=== PATIENT | male | born 1950 | race African-American/Black ===

== ENCOUNTER 2016-09-16 23:00 | Inpatient (IN) | payer MEDICARE, MEDICAID ==
[~2016-09-16] VITALS: Ht 172.7 cm; Wt 56.4 kg
[~2016-09-16 23:00] MED LIST: IBUPROFEN600 MG ORAL; PROZAC10 MG ORAL; TENORMIN50 MG ORAL
[2016-09-17] VITALS (8 sets, daily range): BP systolic 140–170; BP diastolic 76–101
[2016-09-17] MEDS ORDERED: METHADONE HCL10 MG PO (01:44)
[2016-09-17] MEDS ORDERED: Morphine Sulfate 4mg/ml Inj IM PRN (02:15)
[2016-09-17] MEDS ORDERED: Morphine Sulfate 2mg/ml Inj IM PRN (02:15)
[2016-09-17] MEDS ORDERED: Morphine Sulfate 2mg/ml Inj IVP PRN ×2 (06:15→17:00)
[2016-09-17] MEDS ORDERED: Morphine Sulfate 4mg/ml Inj IVP PRN ×2 (06:15→15:00)
[2016-09-17 08:32] LABS: BASOPHILS % (AUTO) 1.1 % (0.0-2.0); EOSINOPHILS % (AUTO) 0.6 % (0.0-3.0); MEAN CORPUSCULAR HEMOGLOBIN 27.1 PG (27.0-31.0); MEAN CORPUSCULAR HGB CONC 31.7 G/DL (32.0-36.0); MEAN CORPUSCULAR VOLUME 85 FL (80-99); MEAN PLATELET VOLUME 6.8 FL (6.5-10.1); MONOCYTES % (AUTO) 4.4 % (1.0-10.0); NEUTROPHILS % (AUTO) 76.8 % (45.0-75.0); PLATELET COUNT 273 K/UL (150-450); RED BLOOD COUNT 5.23 M/UL (4.70-6.10); RED CELL DISTRIBUTION WIDTH 12.8 % (11.6-14.8)
--- NOTE | 2016-09-17 08:32 | Diagnostic Imaging Report ---
Indications: Chest pain Technique: Portable AP chest Findings: Comparison: None Lung volumes are asymmetric, right greater than left. Small linear density is present in the left lung base. Right lung clear. Heart size, pulmonary vasculature within normal limits. Thoracic aorta mildly calcified and elongated. Otherwise, no abnormal mediastinal widening. No pleural abnormality detected. Bones and extra pulmonary soft tissues unremarkable. IMPRESSION: Asymmetric lung volumes, acuity indeterminate. This may reflect asymmetric COPD. Minimal subsegmental atelectasis versus scarring left lung base Aortosclerosis and probable chronic hypertensive change
[2016-09-17 08:48] LABS: ALANINE AMINOTRANSFERASE 16 U/L (3-41); ALBUMIN/GLOBULIN RATIO 0.7 (1.0-2.7); ANION GAP 12 (5-15); ASPARTATE AMINO TRANSFERASE 25 U/L (5-40); CALCIUM 9.3 mg/dL (8.6-10.2); CARBON DIOXIDE 27 mEQ/L (20-30); CHLORIDE 97 mEQ/L (98-107); CREATININE 0.7 mg/dL (0.7-1.2); GLOMERULAR FILTRATION RATE > 60 mL/min (>60); HEMOLYSIS 2; MAGNESIUM 1.8 mg/dL (1.7-2.5); PHOSPHORUS 3.4 mg/dL (2.5-4.8); POTASSIUM 3.9 mEQ/L (3.4-4.9); SODIUM 136 mEQ/L (135-145); TOTAL PROTEIN 8.1 g/dL (6.6-8.7)
[2016-09-17] MEDS ORDERED: FLUoxetine 10mg cap ORAL SCH (09:00)
--- NOTE | 2016-09-17 11:34 | Diagnostic Imaging Report ---
APPROVED REPORT CPT Code: 51940 Present Symptoms Lower Extremity Pain: Bilateral BILATERAL: Imaging reveals a patent deep venous system bilaterally. There is no evidence of thrombus within the femoral, popliteal or tibial segments. The greater saphenous veins are also within normal limits. Doppler indicates normal spontaneous flow within these segments.
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
--- NOTE | 2016-09-17 20:49 | History & Physical ---
History and Physical History & Physicial Dictated for Int Med-Dr Malik no. [id number]. ANTONETTE ISSA September 17, 2016 20:49
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
[2016-09-17] MEDS: Morphine Sulfate 4mg/ml Inj IVP PRN (23:58)
[2016-09-18] VITALS: BP 147/95
[2016-09-18 04:00] VITALS: BP 156/99
[2016-09-18 07:06] LABS: BASOPHILS % (AUTO) 0.8 % (0.0-2.0); EOSINOPHILS % (AUTO) 1.7 % (0.0-3.0); LYMPHOCYTES % (AUTO) 19.6 % (20.0-45.0); MEAN CORPUSCULAR HEMOGLOBIN 27.6 PG (27.0-31.0); MEAN CORPUSCULAR HGB CONC 32.5 G/DL (32.0-36.0); MEAN CORPUSCULAR VOLUME 85 FL (80-99); MEAN PLATELET VOLUME 7.6 FL (6.5-10.1); MONOCYTES % (AUTO) 5.8 % (1.0-10.0); PLATELET COUNT 283 K/UL (150-450); RED BLOOD COUNT 4.96 M/UL (4.70-6.10); RED CELL DISTRIBUTION WIDTH 12.7 % (11.6-14.8)
[2016-09-18 07:30] LABS: ALANINE AMINOTRANSFERASE 14 U/L (3-41); ALBUMIN/GLOBULIN RATIO 0.7 (1.0-2.7); ANION GAP 13 (5-15); ASPARTATE AMINO TRANSFERASE 21 U/L (5-40); CALCIUM 9.2 mg/dL (8.6-10.2); CARBON DIOXIDE 27 mEQ/L (20-30); CHLORIDE 93 mEQ/L (98-107); CREATININE 0.8 mg/dL (0.7-1.2); GLOMERULAR FILTRATION RATE > 60 mL/min (>60); HEMOLYSIS 4; SODIUM 133 mEQ/L (135-145); TOTAL PROTEIN 7.7 g/dL (6.6-8.7)
[2016-09-18] MEDS: FLUoxetine 10mg cap ORAL SCH (08:07)
[2016-09-18 08:15] VITALS: BP 138/91
--- NOTE | 2016-09-18 10:53 | Diagnostic Imaging Report ---
Indication: DYSPNEA Technique: One view of the chest Comparison: 09/17/2016 Findings: There is mild elevation left hemidiaphragm. There is minimal left basilar atelectasis. There may be trace pleural fluid on the left The heart size is normal. Aorta is tortuous. Upper mediastinum is unremarkable. Previously reported left 10th rib fracture is barely visible currently. No pneumothorax. No significant interim change Impression: Minimal left basilar atelectasis. Possible trace left-sided pleural effusion or pneumothorax, given evidence of recent rib trauma No acute process otherwise
[2016-09-18 11:50] VITALS: BP 140/94
[2016-09-18] MEDS: Morphine Sulfate 4mg/ml Inj IVP PRN ×2 (14:41→20:46)
[2016-09-18] MEDS ORDERED: NORCO 10-325 T1 EACH ORAL (15:41)
[2016-09-18 15:51] VITALS: BP 122/81
--- NOTE | 2016-09-18 19:18 | Internal Med Progress Note ---
Subjective Physician Name Vamshi Malik Attending Physician Vamshi Malik MD Current Medications Medications (Trade) Dose Ordered Sig/Samm Route PRN Reason Start Time Stop Time Status Last Admin Dose Admin Carvedilol (Coreg) 3.125 mg EVERY 12 HOURS ORAL 09/17/16 21:00 10/17/16 20:59 09/18/16 08:07 Clonidine HCl (Catapres) 0.1 mg Q4H PRN ORAL SBP>160mmHg 09/17/16 17:00 10/17/16 16:59 Dextrose (Dextrose 50%) STAT PRN IV Hypoglycemia 09/17/16 17:00 10/17/16 16:59 Fluoxetine HCl (PROzac) 10 mg DAILY ORAL 09/18/16 09:00 10/18/16 08:59 09/18/16 08:07 Methadone HCl (Methadone HCl) 55 mg DAILY ORAL 09/18/16 09:00 09/25/16 08:59 09/18/16 08:08 Morphine Sulfate (Morphine Sulfate) 2 mg Q4H PRN IVP PAIN 1-6 09/17/16 17:00 09/24/16 16:59 09/18/16 08:45 Morphine Sulfate (Morphine Sulfate) 4 mg Q3H PRN IVP Severe Pain (Pain Scale 7-10) 09/17/16 17:00 09/24/16 16:59 09/18/16 14:41 Allergies: Coded Allergies: No Known Allergies (Unverified , 10/10/15) Subjective awake, alert, responsive, C/O left side chest wall pain and SOB Objective Last Vital Signs Date Time Temp Pulse Resp B/P Pulse Ox O2 Delivery O2 Flow Rate FiO2 09/18/16 15:51 98.3 72 20 122/81 97 Room Air 09/18/16 11:50 2.0 Laboratory Tests Test 09/18/16 04:35 White Blood Count 8.0 K/UL (4.8-10.8) Red Blood Count 4.96 M/UL (4.70-6.10) Hemoglobin 13.7 G/DL (14.2-18.0) L Hematocrit 42.2 % (42.0-52.0) Mean Corpuscular Volume 85 FL (80-99) Mean Corpuscular Hemoglobin 27.6 PG (27.0-31.0) Mean Corpuscular Hemoglobin Concent 32.5 G/DL (32.0-36.0) Red Cell Distribution Width 12.7 % (11.6-14.8) Platelet Count 283 K/UL (150-450) Mean Platelet Volume 7.6 FL (6.5-10.1) Neutrophils (%) (Auto) 72.0 % (45.0-75.0) Lymphocytes (%) (Auto) 19.6 % (20.0-45.0) L Monocytes (%) (Auto) 5.8 % (1.0-10.0) Eosinophils (%) (Auto) 1.7 % (0.0-3.0) Basophils (%) (Auto) 0.8 % (0.0-2.0) Sodium Level 133 mEQ/L (135-145) L Potassium Level 4.0 mEQ/L (3.4-4.9) Chloride Level 93 mEQ/L (98-107) L Carbon Dioxide Level 27 mEQ/L (20-30) Anion Gap 13 (5-15) Blood Urea Nitrogen 13 mg/dL (7-23) Creatinine 0.8 mg/dL (0.7-1.2) Estimat Glomerular Filtration Rate > 60 mL/min (>60) Glucose Level 90 mg/dL (74-106) Calcium Level 9.2 mg/dL (8.6-10.2) Total Bilirubin 0.4 mg/dL (0.0-1.2) Aspartate Amino Transf (AST/SGOT) 21 U/L (5-40) Alanine Aminotransferase (ALT/SGPT) 14 U/L (3-41) Alkaline Phosphatase 54 U/L (40-129) Pro-B-Type Natriuretic Peptide 97 pg/mL (0-125) Total Protein 7.7 g/dL (6.6-8.7) Albumin 3.3 g/dL (3.5-5.2) L Globulin 4.4 g/dL Albumin/Globulin Ratio 0.7 (1.0-2.7) L Intake and Output 09/17/16 09/18/16 19:00 07:00 Intake Total 360 ml 360 ml Balance 360 ml 360 ml Intake Oral 360 ml 360 ml # Voids 5 4 Objective General: No acute distress, awake and alert, Cachexia. HEENT: NCAT, sclera anicteric, PERRL, EOMI. Neck: Supple, no significant jugular venous distention, Lungs: fair inspiratory effort, clear to auscultation bilaterally, no Wheeze or Rales.Left ribs tenderness. Heart: Regular rate and rhythm, normal S1/S2, no murmur Abdomen: soft, nontender, nondistended. Normoactive bowel sounds. / Rectal: Refused and deferred. Extremities: No Cyanosis , clubbing or edema. Neuro: A&O x 3, Able to move all extremities Skin: warm, no rashes or lesions Psych: Normal mood and affect Assessment/Plan Assessment/Plan GENERAL: The patient is thin-appearing male, in no apparent distress. HEENT: Eyes, pupils are equal and responsive to light and accommodation. Extraocular movements are intact. NECK: Supple without lymphadenopathy. CHEST: Pain to palpation to the left rib cage. Otherwise, clear to auscultation bilaterally without wheezes or rales. CARDIOVASCULAR: Regular rhythm and rate. S1 and S2 are normal without murmurs, rubs, or gallops. ABDOMEN: Soft, nontender, and nondistended. Positive bowel sounds. No hepatosplenomegaly. Currently, no rebound or guarding noted. EXTREMITIES: Negative for clubbing, cyanosis, or edema. RECTAL/GENITALIA: Refused. NEUROLOGIC: Cranial nerves II through XII are grossly intact without focal deficits. Motor strength is 5/5 bilaterally. Deep tendon reflexes 2+ plantar. LABORATORY STUDIES: WBC 2.4, hemoglobin 11.9, hematocrit 35.0, and platelets 238,000. Sodium 140, potassium 3.9, chloride 105, CO2 27, BUN 12, creatinine 0.7, and glucose 97. Chest x-ray revealed a tenth rib fracture on the left without displacement or pneumothorax. ASSESSMENT: This is a 65-year-old male. 1. Fracture of the left 10, 11, 12 ribs. 2. Hypertension. 3. Major depression. 4. Opiate dependence. 5. Lung contusion. 6. Left Hemothorax. TREATMENT: pain control via methadone O2 Via NC Discuss with patient regarding SNF Placement in AM. F/U with Vamshi Raya MD September 18, 2016 19:18
[2016-09-18 20:00] VITALS: BP 131/89
--- NOTE | 2016-09-18 22:29 | Pulmonology Progress Note ---
Assessment/Plan Problems: (1) Hemothorax on left (2) Lung contusion (3) Fracture of rib of left side (4) HTN (hypertension) Assessment/Plan improving pt unable to go home analgesics monitor bp cxr reviewed from 09/18 dvt prophylaxis Subjective Interval Events: pain slightly better Allergies: Coded Allergies: No Known Allergies (Unverified , 10/10/15) Objective Last 24 Hour Vital Signs Date Time Temp Pulse Resp B/P Pulse Ox O2 Delivery O2 Flow Rate FiO2 09/18/16 20:45 70 131/89 09/18/16 20:00 97.9 70 19 131/89 98 Room Air 09/18/16 15:51 98.3 72 20 122/81 97 Room Air 09/18/16 11:50 97.9 64 20 140/94 96 Nasal Cannula 2.0 09/18/16 08:15 98.1 68 19 138/91 94 Nasal Cannula 09/18/16 08:07 62 156/99 09/18/16 04:00 96.3 62 18 156/99 99 Nasal Cannula 2.0 09/18/16 00:00 97.7 62 18 147/95 99 Room Air Intake and Output 09/17/16 09/18/16 19:00 07:00 Intake Total 360 ml 360 ml Balance 360 ml 360 ml Intake Oral 360 ml 360 ml # Voids 5 4 Objective HEENT: normocephalic, atraumatic Respiratory/Chest: lungs clear Cardiovascular: normal peripheral pulses, normal rate Abdomen: normal bowel sounds, soft, non tender, non distended, no scars Extremities: no cyanosis Skin: no rash Laboratory Tests 09/18/16 04:35: White Blood Count 8.0, Red Blood Count 4.96, Hemoglobin 13.7L, Hematocrit 42.2, Mean Corpuscular Volume 85, Mean Corpuscular Hemoglobin 27.6, Mean Corpuscular Hemoglobin Concent 32.5, Red Cell Distribution Width 12.7, Platelet Count 283, Mean Platelet Volume 7.6, Neutrophils (%) (Auto) 72.0, Lymphocytes (%) (Auto) 19.6L, Monocytes (%) (Auto) 5.8, Eosinophils (%) (Auto) 1.7, Basophils (%) (Auto ) 0.8, Sodium Level 133L, Potassium Level 4.0, Chloride Level 93L, Carbon Dioxide Level 27, Anion Gap 13, Blood Urea Nitrogen 13, Creatinine 0.8, Estimat Glomerular Filtration Rate > 60, Glucose Level 90, Calcium Level 9.2, Total Bilirubin 0.4, Aspartate Amino Transf (AST/SGOT) 21, Alanine Aminotransferase ( ALT/SGPT) 14, Alkaline Phosphatase 54, Pro-B-Type Natriuretic Peptide 97, Total Protein 7.7, Albumin 3.3L, Globulin 4.4, Albumin/Globulin Ratio 0.7L Current Medications Medications (Trade) Dose Ordered Sig/Samm Route PRN Reason Start Time Stop Time Status Last Admin Dose Admin Carvedilol (Coreg) 3.125 mg EVERY 12 HOURS ORAL 09/17/16 21:00 10/17/16 20:59 09/18/16 20:45 Clonidine HCl (Catapres) 0.1 mg Q4H PRN ORAL SBP>160mmHg 09/17/16 17:00 10/17/16 16:59 Dextrose (Dextrose 50%) STAT PRN IV Hypoglycemia 09/17/16 17:00 10/17/16 16:59 Fluoxetine HCl (PROzac) 10 mg DAILY ORAL 09/18/16 09:00 10/18/16 08:59 09/18/16 08:07 Methadone HCl (Methadone HCl) 55 mg DAILY ORAL 09/18/16 09:00 09/25/16 08:59 09/18/16 08:08 Morphine Sulfate (Morphine Sulfate) 2 mg Q4H PRN IVP PAIN 1-6 09/17/16 17:00 09/24/16 16:59 09/18/16 08:45 Morphine Sulfate (Morphine Sulfate) 4 mg Q3H PRN IVP Severe Pain (Pain Scale 7-10) 09/17/16 17:00 09/24/16 16:59 09/18/16 20:46 ADINA REYNOSO September 18, 2016 22:29
[2016-09-19] VITALS: BP 119/77
[2016-09-19] MEDS: Morphine Sulfate 4mg/ml Inj IVP PRN ×4 (03:41→20:46)
[2016-09-19 04:00] VITALS: BP 148/98
[2016-09-19 08:15] VITALS: BP 146/92
[2016-09-19] MEDS ORDERED: Miralax 17gm pkt ORAL ONE (09:00)
[2016-09-19] MEDS: FLUoxetine 10mg cap ORAL SCH (09:09)
--- NOTE | 2016-09-19 11:16 | Pulmonology Progress Note ---
Assessment/Plan Problems: (1) Hemothorax on left (2) Lung contusion (3) Fracture of rib of left side (4) HTN (hypertension) Assessment/Plan improving pt unable to go home analgesics monitor bp cxr reviewed from 09/18 dvt prophylaxis dc planning in progress Subjective ROS Limited/Unobtainable: No Constitutional: Reports: no symptoms Respiratory: Reports: no symptoms Allergies: Coded Allergies: No Known Allergies (Unverified , 10/10/15) Objective Last 24 Hour Vital Signs Date Time Temp Pulse Resp B/P Pulse Ox O2 Delivery O2 Flow Rate FiO2 09/19/16 09:09 76 146/92 09/19/16 08:15 97.9 76 15 146/92 94 Room Air 09/19/16 04:00 97.0 62 18 148/98 100 Room Air 09/19/16 00:00 97.9 63 18 119/77 97 Nasal Cannula 2.0 09/18/16 20:45 70 131/89 09/18/16 20:00 97.9 70 19 131/89 98 Room Air 09/18/16 15:51 98.3 72 20 122/81 97 Room Air 09/18/16 11:50 97.9 64 20 140/94 96 Nasal Cannula 2.0 Intake and Output 09/18/16 09/19/16 19:00 07:00 Intake Total 1150 ml Output Total 800 ml Balance 350 ml Intake Oral 1150 ml Output Urine Total 800 ml # Voids 2 2 # Bowel Movements 2 Objective HEENT: normocephalic, atraumatic Respiratory/Chest: lungs clear Cardiovascular: normal peripheral pulses, normal rate Abdomen: normal bowel sounds, soft, non tender, non distended, no scars Extremities: no cyanosis Skin: no rash Microbiology Date/Time Source Procedure Growth Status 09/17/16 04:00 Rectum VRE Culture - Final NO VANCOMYCIN RESISTANT ENTEROCOCCUS ... Complete Current Medications Medications (Trade) Dose Ordered Sig/Samm Route PRN Reason Start Time Stop Time Status Last Admin Dose Admin Carvedilol (Coreg) 3.125 mg EVERY 12 HOURS ORAL 09/17/16 21:00 10/17/16 20:59 09/19/16 09:09 Clonidine HCl (Catapres) 0.1 mg Q4H PRN ORAL SBP>160mmHg 09/17/16 17:00 10/17/16 16:59 Dextrose (Dextrose 50%) STAT PRN IV Hypoglycemia 09/17/16 17:00 10/17/16 16:59 Fluoxetine HCl (PROzac) 10 mg DAILY ORAL 09/18/16 09:00 10/18/16 08:59 09/19/16 09:09 Methadone HCl (Methadone HCl) 55 mg DAILY ORAL 09/18/16 09:00 09/25/16 08:59 09/19/16 09:12 Morphine Sulfate (Morphine Sulfate) 2 mg Q4H PRN IVP PAIN 1-6 09/17/16 17:00 09/24/16 16:59 09/18/16 08:45 Morphine Sulfate (Morphine Sulfate) 4 mg Q3H PRN IVP Severe Pain (Pain Scale 7-10) 09/17/16 17:00 09/24/16 16:59 09/19/16 10:50 ADINA REYNOSO September 19, 2016 11:15
[2016-09-19 11:53] VITALS: BP 124/89
[2016-09-19 15:57] VITALS: BP 129/91
--- NOTE | 2016-09-19 17:26 | Internal Med Progress Note ---
Subjective Date of Service: September 19, 2016 Physician Name London Issa Attending Physician Vamshi Malik MD Current Medications Medications (Trade) Dose Ordered Sig/Samm Route PRN Reason Start Time Stop Time Status Last Admin Dose Admin Carvedilol (Coreg) 3.125 mg EVERY 12 HOURS ORAL 09/17/16 21:00 10/17/16 20:59 09/19/16 09:09 Clonidine HCl (Catapres) 0.1 mg Q4H PRN ORAL SBP>160mmHg 09/17/16 17:00 10/17/16 16:59 Dextrose (Dextrose 50%) STAT PRN IV Hypoglycemia 09/17/16 17:00 10/17/16 16:59 Fluoxetine HCl (PROzac) 10 mg DAILY ORAL 09/18/16 09:00 10/18/16 08:59 09/19/16 09:09 Methadone HCl (Methadone HCl) 55 mg DAILY ORAL 09/18/16 09:00 09/25/16 08:59 09/19/16 09:12 Morphine Sulfate (Morphine Sulfate) 2 mg Q4H PRN IVP PAIN 1-6 09/17/16 17:00 09/24/16 16:59 09/18/16 08:45 Morphine Sulfate (Morphine Sulfate) 4 mg Q3H PRN IVP Severe Pain (Pain Scale 7-10) 09/17/16 17:00 09/24/16 16:59 09/19/16 16:32 Allergies: Coded Allergies: No Known Allergies (Unverified , 10/10/15) ROS Limited/Unobtainable: No Constitutional: Reports: no symptoms HEENT: Reports: no symptoms Cardiovascular: Reports: chest pain Respiratory: Reports: no symptoms Gastrointestinal/Abdominal: Reports: no symptoms Genitourinary: Reports: no symptoms Neurologic/Psychiatric: Reports: no symptoms Subjective 65 YO M admitted with chest pain. Now left rib fractures. Cover for Int Med- Dr Malik. Await intermediate facility placement Objective Last Vital Signs Date Time Temp Pulse Resp B/P Pulse Ox O2 Delivery O2 Flow Rate FiO2 09/19/16 15:57 97.9 70 15 129/91 98 Room Air 09/19/16 00:00 2.0 Microbiology Date/Time Source Procedure Growth Status 09/17/16 04:00 Nasal Nares MRSA Culture - Final NO METHICILLIN RESISTANT STAPH AUREUS... Complete 09/17/16 04:00 Rectum VRE Culture - Final NO VANCOMYCIN RESISTANT ENTEROCOCCUS ... Complete Intake and Output 09/18/16 09/19/16 19:00 07:00 Intake Total 1150 ml Output Total 800 ml Balance 350 ml Intake Oral 1150 ml Output Urine Total 800 ml # Voids 2 2 # Bowel Movements 2 Objective General: alert, cooperative, no distress, appears stated age Head: normocephalic, without obvious abnormality, atraumatic Eyes: conjunctivae/corneas clear. PERRL, EOM's intact Throat: lips, mucosa, and tongue normal. MMM Neck: supple, symmetrical, trachea midline, and no JVD Lungs: clear to auscultation bilaterally; tender to palpation left ribs. Heart: regular rate and rhythm, S1, S2 normal, no murmur, click, rub or gallop Abdomen: soft, non-tender, non-distended, bowel sounds normal; no masses or organomegaly Extremities: extremities normal, atraumatic, no cyanosis or edema Pulses: 2+ and symmetric Skin: skin color, texture, turgor normal; no rashes or lesions Neurologic: grossly normal, no focal deficits Assessment/Plan Problem List: (1) Major depression Assessment & Plan: Cont prozac (2) Fracture of rib of left side (3) Lung contusion (4) Methadone maintenance therapy patient (5) HTN (hypertension) Assessment & Plan: Cont coreg and clonidine. Assessment/Plan Await placement at [facility] on 09/20/16. LONDON ISSA September 19, 2016 17:26
[2016-09-19 20:00] VITALS: BP 119/78
[2016-09-20] VITALS: BP 115/74
[2016-09-20 04:00] VITALS: BP 121/77
[2016-09-20] MEDS: Morphine Sulfate 4mg/ml Inj IVP PRN ×2 (04:26→08:41)
[2016-09-20 08:00] VITALS: BP 128/85
[2016-09-20] MEDS: FLUoxetine 10mg cap ORAL SCH (08:39)
[2016-09-20 08:40] VITALS: BP 128/85
--- NOTE | 2016-09-20 13:00 | Internal Med Progress Note ---
Subjective Physician Name Vamshi Malik Attending Physician Vamshi Malik MD Allergies: Coded Allergies: No Known Allergies (Unverified , 10/10/15) Subjective awake, alert, responsive, C/O less left side chest wall pain, No SOB Objective Last Vital Signs Date Time Temp Pulse Resp B/P Pulse Ox O2 Delivery O2 Flow Rate FiO2 09/20/16 08:40 72 128/85 09/20/16 08:00 97.7 20 97 Nasal Cannula 2.0 Intake and Output 09/19/16 09/20/16 19:00 07:00 Intake Total 1740 ml Output Total 650 ml 800 ml Balance 1090 ml -800 ml Intake Oral 1740 ml Output Urine Total 650 ml 800 ml # Voids 2 # Bowel Movements 1 1 Objective General: No acute distress, awake and alert, Cachexia. HEENT: NCAT, sclera anicteric, PERRL, EOMI. Neck: Supple, no significant jugular venous distention, Lungs: fair inspiratory effort, clear to auscultation bilaterally, no Wheeze or Rales.Left ribs tenderness. Heart: Regular rate and rhythm, normal S1/S2, no murmur Abdomen: soft, nontender, nondistended. Normoactive bowel sounds. / Rectal: Refused and deferred. Extremities: No Cyanosis , clubbing or edema. Neuro: A&O x 3, Able to move all extremities Skin: warm, no rashes or lesions Psych: Normal mood and affect Assessment/Plan Assessment/Plan 1. Fracture of the left 10, 11, 12 ribs. 2. Hypertension. 3. Major depression. 4. Opiate dependence. 5. Lung contusion. 6. Left Hemothorax. TREATMENT: pain control via methadone and [place] PRN for breakthrough. O2 Via [place] DC to [facility] today F/U with Dr. Verdin recommendations Vamshi Malik MD September 20, 2016 13:00
== END 2016-09-20 11:30 | DRG 187 ==
LOC: 2E 09-17 00:58 → 4E 09-17 15:59
DX: J94.2 Hemothorax (principal); F11.20 Opioid dependence, uncomplicated; S22.42XA Multiple fractures of ribs, left side, initial encounter for closed fracture; S27.321A Contusion of lung, unilateral, initial encounter; Y04.2XXA Assault by strike against or bumped into by another person, initial encounter; I10 Essential (primary) hypertension; F32.9 Major depressive disorder, single episode, unspecified
CPT/HCPCS: 36415; 71010; 80053; 83735; 83880; 84100; 85025; 87081; 93970